=== PATIENT | female | born 1950 | race Two or more races ===

== ENCOUNTER 2024-04-04 17:22 | Inpatient (IN) | payer OTHER, MEDICAID ==
[~2024-04-04] VITALS: Ht 152.4 cm; Wt 90.7 kg
[2024-04-04 18:00] VITALS: BP 109/54; PULSE 69; RESP 18; TEMP 97.5; O2SAT 97
[2024-04-04 18:19] LABS: BASOPHILS % (AUTO) 0.3 % (0.0-2.0); EOSINOPHILS # (AUTO) 0.1 K/uL (0-0.4); EOSINOPHILS % (AUTO) 1.4 % (0.0-4.0); HEMATOCRIT 37.4 % (36-48); HEMOGLOBIN 12.2 g/dL (12.0-16.0); LYMPHOCYTES % (AUTO) 30.4 % (20.5-51.1); MEAN CORPUSCULAR HEMOGLOBIN 28 pg (27-31); MEAN CORPUSCULAR HGB CONC 33 g/dL (33-37); MEAN CORPUSCULAR VOLUME 86.6 fL (80-94); MONOCYTES # (AUTO) 0.4 K/uL (0.8-1.0); MONOCYTES % (AUTO) 6.3 % (1.7-9.3); NEUTROPHILS # (AUTO) 4.1 K/uL (1.8-7.7); NEUTROPHILS % (AUTO) 61.6 % (42.2-75.2); PLATELET COUNT (AUTO) 242 K/uL (140-450); RED BLOOD CELL COUNT(AUTO) 4.32 MIL/uL (4.20-5.40); RED CELL DISTRIBUTION WIDTH 14.9 % (11.6-13.7); WHITE BLOOD COUNT (AUTO) 6.7 K/uL (4.8-10.8)
[2024-04-04 18:37] LABS: ALANINE AMINOTRANSFERASE 25 U/L (12-78); ALBUMIN 2.9 g/dL (3.4-5.0); ALKALINE PHOSPHATASE 139 U/L (50-136); ANION GAP 10.6 (8-16); ASPARTATE AMINOTRANSFERASE 18 U/L (15-37); CARBON DIOXIDE 30.3 mmol/L (21-32); CHLORIDE 103 mmol/L (98-107); CREATININE 0.6 mg/dL (0.6-1.3); GLUCOSE 102 mg/dL (74-106); POTASSIUM 3.9 mmol/L (3.5-5.1); SODIUM SERUM 140 mmol/L (136-145); TOTAL BILIRUBIN 0.4 mg/dL (0.0-1.0); UREA NITROGEN, BLOOD 16 mg/dL (7-18)
[2024-04-04 19:40] VITALS: PULSE 75; RESP 18; O2SAT 95
[2024-04-04] MEDS ORDERED: DEXTROSE 50% 50 ML SYR IVP PRN (19:50)
[2024-04-04] MEDS ORDERED: INSULIN LISPRO SLIDING SCALE 100 UNITS/ML VIAL SUBQ PRN (19:50)
[2024-04-04 20:00] VITALS: PULSE 75; RESP 18; O2SAT 95
[2024-04-04] MEDS: ERTAPENEM SODIUM 1,000 MG in NACL 0.9% 50 ML IV SCH (20:12)
[2024-04-04] MEDS: NACL 0.45% 1,000 ML IV SCH (20:12)
[2024-04-04] MEDS: MORPHINE SULFATE 4 MG/ML SYR IVP PRN (20:15)
[2024-04-04] MEDS ORDERED: BLOOD GLUCOSE MONITORING 1 DEV DEV FS SCH (21:00)
[2024-04-04] MEDS ORDERED: WATER STERILE 10 ML MC ONE ×2 (23:56)
[2024-04-05] MEDS: VANCOMYCIN 500 MG VIAL PO SCH (00:06)
[2024-04-05] MEDS: HYDROcodone/APAP 5/325 MG 1 TAB TAB PO PRN (00:09)
[2024-04-05 04:00] VITALS: BP 127/44; PULSE 71; RESP 18; TEMP 97.4; O2SAT 94
[2024-04-05 08:00] VITALS: BP 135/75; PULSE 72; RESP 18; TEMP 97; O2SAT 96
[2024-04-05 08:42] VITALS: PULSE 68; RESP 20; O2SAT 99
[2024-04-05] MEDS: ACETAMINOPHEN 325 MG TAB PO PRN (11:14)
[2024-04-05] MEDS: VANCOMYCIN HCL 25 MG/ML SOLN PO SCH (12:20)
[2024-04-05] MEDS: GABAPENTIN 300 MG CAP PO SCH (12:23)
[2024-04-05] MEDS: CYCLOBENZAPRINE 10 MG TAB PO SCH (12:23)
[2024-04-05 16:00] VITALS: BP 128/63; PULSE 78; RESP 18; TEMP 97.2; O2SAT 96
[2024-04-05 17:49] LABS: BASOPHILS # (AUTO) 0.1 K/uL (0.00-0.22); EOSINOPHILS # (AUTO) 0.1 K/uL (0-0.4); EOSINOPHILS % (AUTO) 1.5 % (0.0-4.0); HEMATOCRIT 36.4 % (36-48); HEMOGLOBIN 11.9 g/dL (12.0-16.0); LYMPHOCYTES # (AUTO) 2.2 K/uL (2.5-16.5); LYMPHOCYTES % (AUTO) 34.9 % (20.5-51.1); MEAN CORPUSCULAR HEMOGLOBIN 28 pg (27-31); MEAN CORPUSCULAR HGB CONC 33 g/dL (33-37); MEAN CORPUSCULAR VOLUME 86.4 fL (80-94); MONOCYTES # (AUTO) 0.5 K/uL (0.8-1.0); MONOCYTES % (AUTO) 7.8 % (1.7-9.3); NEUTROPHILS # (AUTO) 3.4 K/uL (1.8-7.7); NEUTROPHILS % (AUTO) 54.8 % (42.2-75.2); PLATELET COUNT (AUTO) 267 K/uL (140-450); RED BLOOD CELL COUNT(AUTO) 4.22 MIL/uL (4.20-5.40); RED CELL DISTRIBUTION WIDTH 14.7 % (11.6-13.7); WHITE BLOOD COUNT (AUTO) 6.3 K/uL (4.8-10.8)
[2024-04-05 18:09] LABS: ALANINE AMINOTRANSFERASE 22 U/L (12-78); ALBUMIN 2.7 g/dL (3.4-5.0); ALKALINE PHOSPHATASE 129 U/L (50-136); ANION GAP 12.1 (8-16); ASPARTATE AMINOTRANSFERASE 14 U/L (15-37); CALCIUM 8.7 mg/dL (8.5-10.1); CARBON DIOXIDE 28.6 mmol/L (21-32); CHLORIDE 102 mmol/L (98-107); CREATININE 0.6 mg/dL (0.6-1.3); GLUCOSE 96 mg/dL (74-106); POTASSIUM 3.7 mmol/L (3.5-5.1); SODIUM SERUM 139 mmol/L (136-145); TOTAL BILIRUBIN 0.3 mg/dL (0.0-1.0); TOTAL PROTEIN, SERUM 6.6 g/dL (6.4-8.2); UREA NITROGEN, BLOOD 14 mg/dL (7-18)
[2024-04-05] MEDS: oxyCODONE/APAP 5/325 MG 1 TAB TAB PO PRN (21:27)
== END 2024-04-05 23:59 | disposition home health service (06) | DRG 690 ==
LOC: MTU 17:22
PROVIDERS: ADMIT Family Medicine; ATTEND Family Medicine
DX: N10 Acute pyelonephritis (principal); Z16.12 Extended spectrum beta lactamase (ESBL) resistance; E44.0 Moderate protein-calorie malnutrition; N39.0 Urinary tract infection, site not specified; Z68.39 Body mass index [BMI] 39.0-39.9, adult; R19.7 Diarrhea, unspecified; Z96.652 Presence of left artificial knee joint; G89.29 Other chronic pain; B96.20 Unspecified Escherichia coli [E. coli] as the cause of diseases classified elsewhere; Z90.49 Acquired absence of other specified parts of digestive tract; Z90.710 Acquired absence of both cervix and uterus; Z85.118 Personal history of other malignant neoplasm of bronchus and lung; Z97.10 Presence of artificial limb (complete) (partial), unspecified
CPT/HCPCS: 36415; 71045; 80053; 85025; 87040; 87070; 87081; 87086; 97116; 97163-GP; J1335; J2270; J3370; Q0092